=== PATIENT | female | born 1975 | race Caucasian/White ===

== ENCOUNTER 2023-08-12 13:34 | Outpatient (REF) | payer BC, SELFPAY ==
[2023-08-12 14:22] LABS: Basophils Absolute Auto 0.05 K/uL (0.00-0.30); Basophils Percent Auto 0.5 % (0.0-3.0); Eosinophils Absolute Auto 0.08 K/uL (0.00-0.50); Eosinophils Percent Auto 0.8 % (0.0-7.0); Hematocrit 41.7 % (33.0-51.0); Hemoglobin* 13.6 gm/dL (12.0-16.0); Immature Granulocytes Abs Auto 0.02 K/uL (0.00-0.30); Immature Granulocytes Pct Auto 0.2 %; Lymphocytes Percent Auto 15.1 % (20-44); Mean Corpuscular HGB Conc 33 gm/dL (32-36); Mean Corpuscular Hemoglobin 32 pg (26-34); Mean Corpuscular Volume 99 fL (80-100); Monocytes Percent Auto 6.5 % (0.0-11.0); Neutrophils Percent Auto 76.9 % (42.0-72.0); Platelet Count* 437 K/uL (140-440); RDW Coefficient of Variation % 13.4 % (11.5-15.5); Red Blood Count 4.23 m/uL (4.00-5.20); White Blood Count* 9.54 K/uL (4.50-11.00)
[2023-08-12 14:26] LABS: Slide Review Reflex No
[2023-08-14 06:00] LABS: Cortisol, Serum 1.5 ug/dL
== END 2023-08-12 13:35 | disposition home or self-care (01) ==
LOC: NPINS 13:34
PROVIDERS: PCP Dermatology
DX: R23.3 Spontaneous ecchymoses (principal); R82.998 Other abnormal findings in urine
CPT/HCPCS: 80299; 82533; 85025